=== PATIENT | female | born 1955 | race Caucasian/White ===

== ENCOUNTER 2018-03-09 08:53 | Emergency (ER) | payer OTHER ==
[2018-03-09 09:09] VITALS: BP 103/83
--- NOTE | 2018-03-09 09:18 | EDPHY ---
H & P Time Seen by Provider: 03/09/18 09:18 HPI/ROS: Chief complaint. Knee pain HPI. Patient is a 62-year-old female with 1 day history of left knee pain. It began after riding exercise bike for about 15 min. She denies trauma including twisting or fall. No history of left knee pain. Using ibuprofen with inadequate relief. Increased pain with movement and walking. ROS 10 systems were reviewed and negative with the exception of the elements mentioned in the history of present illness Past Medical/Surgical History: Previous wrist injury Social History: Single, nonsmoker, no alcohol Smoking Status: Former smoker Physical Exam: General Appearance: Alert well-developed female moderate distress vital signs are stable Eyes: Pupils equal and round no pallor or injection. ENT, Mouth: Mucous membranes are moist. Respiratory: There are no retractions, lungs are clear to auscultation. Cardiovascular: Regular rate and rhythm. Gastrointestinal: Abdomen is soft and nontender, no masses, bowel sounds normal. Neurological: Awake and alert, sensory and motor exams grossly normal. Skin: Warm and dry, no rashes. Musculoskeletal: Neck is supple nontender. Extremities left knee appears diffusely swollen. No erythema. Diffuse pain without specific area of pain. Pain with stress but no instability. Distal motor vascular sensitivity is intact Psychiatric: Patient is oriented X 3, there is no agitation. Constitutional: Initial Vital Signs Temperature (C) 36.7 C 03/09/18 09:06 Heart Rate 89 03/09/18 09:06 Respiratory Rate 18 03/09/18 09:06 Blood Pressure 103/83 H 03/09/18 09:06 O2 Sat (%) 95 03/09/18 09:06 O2 Delivery Mode Room Air Allergies/Adverse Reactions: Penicillins Allergy (Unknown, Verified 03/09/18 09:04) Home Medications: Medication Instructions Recorded Hydrocodone/APAP 5/325 [[place] 1 each PO Q4-6PRN PRN #10 tab 03/09/18 5/325 (*)] Medical Decision Making - Diagnostics Imaging Results: X-ray interpreted by me is normal without fracture dislocation. Small joint effusion is noted Procedures: Patient is placed in a knee immobilizer left knee. Post splint application reviewed by me and shows good anatomic position and distal motor vascular sensitivity to be intact ED Course/Re-evaluation: Patient and I discussed imaging studies. We discussed treatment plan including criteria for return and importance of follow-up and further evaluation. She expresses understanding and agreement Differential Diagnosis: Knee pain without trauma. No evidence for fracture dislocation. This is likely overuse injury with inflammation Departure - Departure Disposition: Home, Routine, Self-Care Clinical Impression: Left knee sprain Qualifiers: Encounter type: initial encounter Involved ligament of knee: unspecified ligament Qualified Code(s): S83.92XA - Sprain of unspecified site of left knee, initial encounter Condition: Good Instructions: Knee Sprain (ED), Knee Immobilizer (ED) Additional Instructions: Ice to knee next 24 hr. Elevate leg as much as possible Ibuprofen 600 mg every 6 hr for discomfort. Hydrocodone in addition for pain if necessary. May use Tylenol 1000 mg every 6 hr or hydrocodone. Hydrocodone contains Tylenol so do not take extra Tylenol if taking high Knee immobilizer for 1 week. Return for worsening symptoms Referrals: Karolina Kidd MD [Primary Care Provider] - 3-4 days, if not improved Prescriptions: Hydrocodone/APAP 5/325 [[place] 5/325 (*)] 1 each PO Q4-6PRN PRN #10 tab PRN Reason: Pain, Moderate
[2018-03-09] MEDS ORDERED: HYDROCODONE/APAP 5/325 TAB ONE (10:17)
[2018-03-09] MEDS ORDERED: HYDROCODONE/APAP 5/325 TAB PO ONE (10:33)
== END 2018-03-09 10:50 | disposition home or self-care (01) ==
LOC: CED 08:53
DX: S83.92XA Sprain of unspecified site of left knee, initial encounter (principal); X50.3XXA Overexertion from repetitive movements, initial encounter; Y93.55 Activity, bike riding; Y92.9 Unspecified place or not applicable; Y99.9 Unspecified external cause status
CPT/HCPCS: 73564-PO; L1830